=== PATIENT | male | born 1950 | race Caucasian/White ===

== ENCOUNTER 2018-11-16 10:07 | Emergency (ER) | payer OTHER ==
[2018-11-16] MEDS ORDERED: SODIUM CHLORIDE 0.9% 1,000 ML IV STA (10:12)
--- NOTE | 2018-11-16 10:17 | ED ---
Seizure HPI - General Stated Complaint: Seizure Time Seen by Provider: 11/16/18 10:11 Source: RN notes reviewed, old records reviewed - History of Present Illness Initial Comments: This is a 60-year-old male the ER for evasive seizure-like activity patient has seizure-like activity of lower extremities partial seizure type activity. Right lower extremity and right upper [place] currently, prior to arrival with left lower extremity and left upper extremity. Patient did have recent fall where his had he does not state that he lost consciousness at the time. Was complaining of mild headache. Patient denies prior history of seizure. Denies any recent drug or alcohol abuse. Family states he also noticed deformity at the mouth and complete spasticity of lower extremity and upper extremity left sided prior to arrival MD Complaint: seizure, possible seizure, shaking -: minutes(s) Description of Episode: loss of consciousness (Minor) -: second(s), minutes(s) Witnessed: yes - by bystander Trauma: Yes (Patient did fall from standing and hit his head 3 days ago) Seizure History: none Place: street/outdoors Possible Precipitating Event: head injury Associated Symptoms: denies other symptoms Treatments Prior to Arrival: none - Related Data Home Medications Medication Instructions Recorded Confirmed Cialis (Unknown) 1 tab PO DIRECTED 11/16/18 11/16/18 Eztrol (Mg Unknown) 1 tab PO DAILY 11/16/18 11/16/18 Lipitor (Mg Unknown) 1 tab PO DAILY 11/16/18 11/16/18 Pantacloc (Mg Unknown) 1 dose PO DAILY 11/16/18 11/16/18 Testosterone [Androgel 1% Gel Pump] 1 dose TRANSDERM DIRECTED 11/16/18 Allergies Allergy/AdvReac Type Severity Reaction Status Date / Time No Known Allergies Allergy Verified 11/16/18 10:33 Review of Systems ROS Statement: Those systems with pertinent positive or pertinent negative responses have been documented in the HPI. ROS Other: All systems not noted in ROS Statement are negative. General Exam General appearance: alert, in no apparent distress Head exam: Present: atraumatic, normocephalic, normal inspection Eye exam: Present: normal appearance, PERRL, EOMI. Absent: scleral icterus, conjunctival injection, periorbital swelling ENT exam: Present: normal exam, mucous membranes moist Neck exam: Present: normal inspection. Absent: tenderness, meningismus, lymphadenopathy Respiratory exam: Present: normal lung sounds bilaterally. Absent: respiratory distress, wheezes, rales, rhonchi, stridor Cardiovascular Exam: Present: regular rate, normal rhythm, normal heart sounds. Absent: systolic murmur, diastolic murmur, rubs, gallop, clicks GI/Abdominal exam: Present: soft, normal bowel sounds. Absent: distended, tenderness, guarding, rebound, rigid Extremities exam: Present: normal inspection, full ROM, normal capillary refill. Absent: tenderness, pedal edema, joint swelling, calf tenderness Back exam: Present: normal inspection Neurological exam: Present: alert, oriented X3, CN II-XII intact Psychiatric exam: Present: normal affect, normal mood Skin exam: Present: warm, dry, intact, normal color. Absent: rash Course Vital Signs 11/16/18 11/16/18 11/16/18 10:11 10:30 10:45 Temperature 97.4 F L Pulse Rate 82 73 Respiratory 18 16 17 Rate Blood Pressure 136/82 136/82 137/81 O2 Sat by Pulse 97 98 Oximetry 11/16/18 11:00 Temperature Pulse Rate 70 Respiratory 16 Rate Blood Pressure 133/87 O2 Sat by Pulse 97 Oximetry - Reevaluation(s) Reevaluation #1: 11/16/18 11:46 Medical record is reviewed Reevaluation #2: 11/16/18 11:46 Spoke with patient and family, no history of seizure, no recurrent episodes here in the ER may be some right hand shaking Reevaluation #3: 11/16/18 11:46 Spoke with patient regarding neurologist neurology transfer, they're agreeable Medical Decision Making - Medical Decision Making 60 male the ER for evaluation of neurological complaint, seizure simple's partial seizures right lower extremity right upper extremity left upper extremity. Patient does have remote history of recent head injury. Computed tomography scan is negative. Patient be transferred for evaluation by neurology - Lab Data Result diagrams: 11/16/18 10:28 11/16/18 10:28 Lab Results 11/16/18 11/16/18 11/16/18 Range/Units 10:28 10:28 10:28 WBC 7.1 (3.8-10.6) k/uL RBC 4.81 (4.30-5.90) m/uL Hgb 15.3 (13.0-17.5) gm/dL Hct 45.6 (39.0-53.0) % MCV 94.7 (80.0-100.0) fL MCH 31.8 (25.0-35.0) pg MCHC 33.5 (31.0-37.0) g/dL RDW 12.8 (11.5-15.5) % Plt Count 135 L (150-450) k/uL Neutrophils % 73 % Lymphocytes % 19 % Monocytes % 4 % Eosinophils % 2 % Basophils % 1 % Neutrophils # 5.2 (1.3-7.7) k/uL Lymphocytes # 1.4 (1.0-4.8) k/uL Monocytes # 0.3 (0-1.0) k/uL Eosinophils # 0.1 (0-0.7) k/uL Basophils # 0.0 (0-0.2) k/uL PT (9.0-12.0) sec INR (<1.2) APTT (22.0-30.0) sec Sodium 139 (137-145) mmol/L Potassium 4.5 (3.5-5.1) mmol/L Chloride 108 H (98-107) mmol/L Carbon Dioxide 19 L (22-30) mmol/L Anion Gap 12 mmol/L BUN 19 (9-20) mg/dL Creatinine 1.03 (0.66-1.25) mg/dL Est GFR (CKD-EPI)AfAm 86 (>60 ml/min/1.73 sqM) Est GFR (CKD-EPI)NonAf 75 (>60 ml/min/1.73 sqM) Glucose 209 H (74-99) mg/dL Plasma Lactic Acid Nestor (0.7-2.0) mmol/L Calcium 8.6 (8.4-10.2) mg/dL Phosphorus 1.9 L (2.5-4.5) mg/dL Magnesium 2.5 H (1.6-2.3) mg/dL Total Bilirubin 1.1 (0.2-1.3) mg/dL AST 25 (17-59) U/L ALT 38 (21-72) U/L Alkaline Phosphatase 76 (38-126) U/L Total Creatine Kinase 145 (55-170) U/L CK-MB (CK-2) 0.6 (0.0-2.4) ng/mL CK-MB (CK-2) Rel Index 0.4 Troponin I <0.012 (0.000-0.034) ng/mL Total Protein 6.9 (6.3-8.2) g/dL Albumin 4.1 (3.5-5.0) g/dL 11/16/18 11/16/18 Range/Units 10:28 10:28 WBC (3.8-10.6) k/uL RBC (4.30-5.90) m/uL Hgb (13.0-17.5) gm/dL Hct (39.0-53.0) % MCV (80.0-100.0) fL MCH (25.0-35.0) pg MCHC (31.0-37.0) g/dL RDW (11.5-15.5) % Plt Count (150-450) k/uL Neutrophils % % Lymphocytes % % Monocytes % % Eosinophils % % Basophils % % Neutrophils # (1.3-7.7) k/uL Lymphocytes # (1.0-4.8) k/uL Monocytes # (0-1.0) k/uL Eosinophils # (0-0.7) k/uL Basophils # (0-0.2) k/uL PT 10.3 (9.0-12.0) sec INR 1.0 (<1.2) APTT 20.3 L (22.0-30.0) sec Sodium (137-145) mmol/L Potassium (3.5-5.1) mmol/L Chloride (98-107) mmol/L Carbon Dioxide (22-30) mmol/L Anion Gap mmol/L BUN (9-20) mg/dL Creatinine (0.66-1.25) mg/dL Est GFR (CKD-EPI)AfAm (>60 ml/min/1.73 sqM) Est GFR (CKD-EPI)NonAf (>60 ml/min/1.73 sqM) Glucose (74-99) mg/dL Plasma Lactic Acid Nestor 6.6 H* (0.7-2.0) mmol/L Calcium (8.4-10.2) mg/dL Phosphorus (2.5-4.5) mg/dL Magnesium (1.6-2.3) mg/dL Total Bilirubin (0.2-1.3) mg/dL AST (17-59) U/L ALT (21-72) U/L Alkaline Phosphatase (38-126) U/L Total Creatine Kinase (55-170) U/L CK-MB (CK-2) (0.0-2.4) ng/mL CK-MB (CK-2) Rel Index Troponin I (0.000-0.034) ng/mL Total Protein (6.3-8.2) g/dL Albumin (3.5-5.0) g/dL - Radiology Data Radiology results: report reviewed (CT brain C-spine negative for acute disease) , image reviewed Disposition Clinical Impression: New onset seizure Disposition: OTHER INSTITUTION NOT DEFINED Condition: Good Instructions (If sedation given, give patient instructions): Recurrent Seizures in Adults (ED) Is patient prescribed a controlled substance at d/c from ED?: No Referrals: Nonstaff,Physician [Primary Care Provider] - 1-2 days - Out of Hospital Transfer - Req. Specs Out of Hospital Transfer - Requested Specifics: Other Emergency Center ([facility])
[2018-11-16 10:40] LABS: Basophils % (A) 1 %; Eosinophils # (A) 0.1 k/uL (0-0.7); Eosinophils % (A) 2 %; HCT 45.6 % (39.0-53.0); HGB 15.3 gm/dL (13.0-17.5); Lymphocytes # (A) 1.4 k/uL (1.0-4.8); Lymphocytes % (A) 19 %; MCH 31.8 pg (25.0-35.0); MCHC 33.5 g/dL (31.0-37.0); MCV 94.7 fL (80.0-100.0); Mean Platelet Volume 6.8; Monocytes # (A) 0.3 k/uL (0-1.0); Monocytes % (A) 4 %; Neutrophils # (A) 5.2 k/uL (1.3-7.7); Neutrophils % (A) 73 %; Platelet Count 135 k/uL (150-450); RBC 4.81 m/uL (4.30-5.90); RDW 12.8 % (11.5-15.5); WBC 7.1 k/uL (3.8-10.6)
[2018-11-16 10:50] LABS: Albumin 4.1 g/dL (3.5-5.0); Calcium 8.6 mg/dL (8.4-10.2); Magnesium 2.5 mg/dL (1.6-2.3); Phosphorus 1.9 mg/dL (2.5-4.5); Potassium 4.5 mmol/L (3.5-5.1); Total Bilirubin 1.1 mg/dL (0.2-1.3); Total Protein 6.9 g/dL (6.3-8.2)
--- NOTE | 2018-11-16 10:53 | CT ---
EXAMINATION TYPE: CT brain mckay chacon con DATE OF EXAM: 11/16/2018 COMPARISON: None HISTORY: Seizure CT DLP: 1242.2 mGycm, Automated exposure control for dose reduction was used. CONTRAST: 0 mL Isovue-300 CT of the brain is performed utilizing 3 mm thick sections through the posterior fossa and 3 mm thick sections through the remaining calvarium. Study is performed within 24 hours of arrival to the hospital. No abnormal hyperdensity is present to suggest an acute intracranial hemorrhage. No mass lesion is evident. No acute infarcts are evident. Ventricles and sulci are appropriate for the patient age. Paranasal sinuses and mastoid air cells within the [id number] are clear. IMPRESSIONS: 1. Normal CT brain. CT cervical spine. COMPARISON: None CT of the cervical spine is performed in the axial plane at 2 mm thick sections. Reconstructed image s in the coronal, and sagittal plane are reviewed on the computer. No acute fractures are evident. Vertebral body alignment is normal. There is loss of disc height C6-C7. Some posterior endplate spurring is present. Mild Spondylosis is through the cervical spine. Vertebral body heights are preserved. No spinal canal stenosis is evident. Uncovertebral joint hypertrophy is present C6-7 with severe right and moderate severe left foraminal stenosis. Correlate with the radicular symptoms. IMPRESSIONS: 1. Degenerative disc changes and uncovertebral joint changes C6-7. Severe foraminal narrowing is pres ent to this level, greater on the right.
[2018-11-16 10:58] LABS: Creatine Kinase 145 U/L (55-170)
[2018-11-16 10:59] LABS: Prothrombin Time 10.3 sec (9.0-12.0)
[2018-11-16 11:04] LABS: Partial Thromboplastin Time 20.3 sec (22.0-30.0)
[2018-11-16 11:11] LABS: Creatine Kinase MB 0.6 ng/mL (0.0-2.4); Troponin I <0.012 ng/mL (0.000-0.034)
[2018-11-16] MEDS ORDERED: levETIRAcetam IV 1,000 MG in SALINE 1 100ML.BAG IVPB STA (12:00)
[2018-11-16 12:27] VITALS: RESP 18
[2018-11-16 13:49] VITALS: BP 124/78; PULSE 67; TEMP 98.1
== END 2018-11-16 13:49 | disposition short-term general hospital (02) ==
LOC: EC 10:07
DX: R56.9 Unspecified convulsions (principal); R51 Headache; R55 Syncope and collapse; Z79.899 Other long term (current) drug therapy
CPT/HCPCS: 36415; 93005; 80053; 82550; 82553; 83605; 83735; 84100; 84484; 85025; 85610; 85730; 72125; 70450; 99285; 96365; 96361 ×2; J1953

== ENCOUNTER → 2018-11-17 | Outpatient (CLI) | payer OTHER ==
--- NOTE | 2018-11-18 08:34 | MR ---
EXAMINATION TYPE: MR brain wo/w con DATE OF EXAM: 11/17/2018 COMPARISON: CT brain 11/16/2018 HISTORY: Seizures with head injury CONTRAST: Performed utilizing 7 mL intravenous Gadavist gadolinium contrast. TECHNIQUE: Multiplanar, multiecho imaging on a 3.0 Alejandra magnet is performed through the brain. Stud y is performed within 24 hours of arrival to the hospital. The craniovertebral junction is normal. The pituitary is normal. Diffusion-weighted imaging is performed. No abnormal hyperintensity is present to suggest an acute i ntracranial infarct or acute ischemic change. There are a few scattered punctate areas of hyperintensity on T2 and Inversion Recovery weighted sequ ences within the subcortical white matter which are non-specific but can be related to microvascular ischemic changes. This is not out of proportion to the patient age. Other etiologies are not excluded . Temporal lobes are symmetrical. Normal vascular flow voids are present. Pituitary stalk appears midli ne. Ventricles and sulci are appropriate for the patient age. No abnormal enhancement is evident. IMPRESSIONS: 1. Few scattered white matter changes, not out of proportion to the patient age. Findings not proport ion to the patient age.
== END | disposition home or self-care (01) ==
LOC: RADMRIMAIN 12:11
PROVIDERS: ATTEND Internal Medicine
DX: R56.9 Unspecified convulsions (principal); R90.89 Other abnormal findings on diagnostic imaging of central nervous system; R51 Headache
CPT/HCPCS: 70553; A9585